=== PATIENT | male | born 1990 | race Caucasian/White ===

== ENCOUNTER → 2023-09-04 01:31 | Outpatient (CLI) | payer OTHER, SELFPAY ==
--- NOTE | 2023-09-04 | DI.MRI_ITS ---
Exam(s) MR LUMBAR SPINE WO EXAM: MR LUMBAR SPINE WO CLINICAL HISTORY: INTVRT DISC STENOSIS OF NEURAL CANAL,M99.53,BACK PAIN. TECHNIQUE: Multiplanar multisequence MRI of the Lumbar spine was performed. COMPARISON: No exams were available for comparison FINDINGS: Conus medullaris is at normal level. There is no evidence of conus mass nor subjacent clumping of in trathecal nerve roots to suggest arachnoiditis. The distal thecal sac appears unremarkable.There is no evidence of Tarlov intrasacral cysts nor other significant findings within the sacral canal Bones:There are no fractures nor ominous osseous lesions in the lumbar vertebral bodies and visualize d sacrum. With respect to the individual levels... T12-L1: Unremarkable L1-2: Normal disc height and signal. No disc herniation nor central canal stenosis.No foraminal steno sis L2-3: Normal disc height. Slight decreased disc hydration signal. Small nonacute Schmorl's node inv agination in the superior endplate of L3 noted. No significant disc herniation nor central canal cl[place] nosis.No foraminal stenosis.No facet arthropathy. L3-4: Normal disc height. No disc herniation or central canal stenosis.No foraminal stenosis.No face t arthropathy. L4-5: Normal disc height and signal. No disc herniation or central canal stenosis. No significant f acet arthropathy. No foraminal stenosis. L5-S1: Normal disc height and signal. No disc herniation nor central canal stenosis. No facet arthr opathy. No foraminal stenosis. Soft tissues: paraspinal soft tissues appear unremarkable. IMPRESSION: 1. Mild findings at L2-3 level as described above. 2. No significant disc herniation. No disc height loss. 3. No evidence of central spinal canal stenosis nor foraminal stenosis. 4. No significant facet arthropathy. DATA REPOSITORY:
== END ==
PROVIDERS: Visit Provider Nurse Practitioner Adult Health
DX: M51.26 Other intervertebral disc displacement, lumbar region (principal)
CPT/HCPCS: 72148

== ENCOUNTER 2024-05-29 13:07 | Emergency (ER) | payer OTHER, SELFPAY ==
[2024-05-29 13:03] VITALS: BP 160/75; PULSE 116; RESP 18; TEMP 39.5; O2SAT 100
--- NOTE | 2024-05-29 13:15 | W.ED.GENAD ---
Discharge Plan Disposition Patient Disposition: [facility] Condition: Stable Discharge Details Clinical Impression: Strep pharyngitis Primary Care Provider: Unknown,Unknown ED Provider: Terell Mijares Home Meds and New Rx's Prescriptions: New prednisone 20 mg tablet 40 mg PO DAILY 4 Days Qty: 8 0RF Rx Instructions: start 05/30/24 Discharge Instructions Instructions: Prednisone, Strep Throat ED Additional Instructions: You were seen in the emergency department for your strep pharyngitis, he had a high fever but had not had any Tylenol or ibuprofen. You are complaining of difficulty breathing but you are 100% oxygen on room air. Please use therapeutic dosing of Tylenol (acetamenophen) & Advil (ibuprofen) in an alternating fashion as follows: Take 1000mg of Tylenol every 6 hours without missing doses- that is 4 times per day. Retirement in between the Tylenol dosings, take 400-600mg of Advil also on a 6 hour schedule, that is also 4 times per day. The daily maximum dosing of Tylenol is 4000mg, and the daily maximum dosing of Advil is 2400mg. This is safe to do for weeks. Please note that some common cold medications & prescription pain medications may contain acetamenophen and you need to read OTC drug labels and factor that in to maximum daily dosings. Use the prescribed prednisone for the next 4 days beginning tomorrow as we gave an IV dose here today. Continue amoxicillin, return to the emergency department for severe vocal changes, severe increase in neck pain and swelling, excessive drooling and inability to open or close the jaw. HPI General Date/Time Provider Initiated Documentation: 05/29/24 13:11. HPI Narrative: 33 year-old male presents to ED today by EMS/DOC with a chief complaint of known strep infection, states having difficulty breathing, and high fever with onset noted today. Quality described as sore throat, no radiation to trismus, vocal changes, cough, ear pain, inability to tolerate PO intake. Severity is described as moderate. Palliating factors include nothing specific attempted- had 1 dose of amoxicillin today, no Tylenol/motrin. Provoking factors include nothing specific. Patient not anticoagulated. Related Data Home Medications ?Medication ?Instructions ?Recorded ?Confirmed prednisone 20 mg tablet 40 mg (2 x 20 mg) PO DAILY 4 days 05/29/24 #8 tabs Previous Rx's ?Medication ?Instructions ?Recorded prednisone 20 mg tablet 40 mg (2 x 20 mg) PO DAILY 4 days 05/29/24 #8 tabs General Stated Complaint: Sorethroat CHANTEL: 3 Review of Systems All systems reviewed & are unremarkable except as noted in HPI and below Exam Narrative Exam Narrative: GENERAL APPEARANCE: Well-nourished, non-toxic, awake and alert, atraumatic, no acute distress. SKIN: Warm, pink, dry, intact, without rashes/lesions/ulcerations. HEAD: Normocephalic, atraumatic, normal hair distribution for gender/age. EYES: Normal conjunctiva, no exudates on lids/lashes. ENT: Nares patent, no circumoral cyanosis, no facial swelling, uvula midline, bilateral tonsillar swelling, no tonsillar lymphadenopathy, managing secretions well, no trismus NECK: Supple, trachea midline, painless cervical ROM. LUNGS/CHEST: Lungs CTA bilaterally-no rhonchi/rales/wheezes diffusely, non-labored respirations, normal A/P diameter, symmetrical expansion, no chest wall deformity HEART (CV/PV): Regular rate and rhythm without murmur, no peripheral edema, no JVD. ABDOMEN: Soft, non-distended, no guarding. MSK: Normal ROM, no swelling/deformity to bilateral UEs or LEs, moving all extremities without weakness, no cyanosis, spine midline without tenderness, normal curvature. NEURO: Mental Status AAOx4 - alert to person, place, time, events No facial droop, no forehead involvement. Motor: No focal weakness - strength 5/5 in bilateral UEs and LEs, proximal and distal, symmetric. Sensory: sensation intact to light touch globally. Gait normal: patient ambulated without ataxia into ED room. PSYCH: euthymic, cooperative, pleasant, appropriate speech Course Vital Signs Vital signs: Vital Signs Temperature 39.5 C H 05/29/24 13:03 Pulse 116 H 05/29/24 13:03 Respiratory Rate 18 05/29/24 13:03 Blood Pressure 160/75 H 05/29/24 13:03 Pulse Oximetry 100 05/29/24 13:03 Temperature 39.5 C H 05/29/24 13:03 Temperature Source Oral 05/29/24 13:03 Pulse 116 H 05/29/24 13:03 Respiratory Rate 18 05/29/24 13:03 Blood Pressure 160/75 H 05/29/24 13:03 Pulse Oximetry 100 05/29/24 13:03 Oxygen Delivery Method Room Air 05/29/24 13:03 Oxygen Flow Rate 0 05/29/24 13:03 Medical Decision Making This dictation utilizes [id number] dictation software and may contain unedited grammatical errors. 33 year-old male presents to ED today by EMS/DOC with a chief complaint of known strep infection, states having difficulty breathing, and high fever with onset noted today. Quality described as sore throat, no radiation to trismus, vocal changes, cough, ear pain, inability to tolerate PO intake. Severity is described as moderate. Palliating factors include nothing specific attempted- had 1 dose of amoxicillin today, no Tylenol/motrin. Provoking factors include nothing specific. Patients' medical history: Noncontributory. Family and social history: Noncontributory, incarcerated. Pertinent exam findings / vital signs include bilateral tonsillar swelling without overt exudate, no trismus, no vocal changes, managing secretions well-patient brought in 100% SpO2 on room air Differential / pathologies of concern include strep pharyngitis, not hypoxic respiratory failure. Diagnostic studies of: -None. Interventions of: -Given 1 g Tylenol, 15 mg ketorolac and 125 mg methylprednisolone IV. Continuing outpatient ED Course/Assessment/Plan: 33-year-old male presents from [facility] facility with confirmed strep pharyngitis, has not had any Tylenol or ibuprofen and has a high fever, complaining of difficulty breathing but is 100% SpO2 on room air. He feels much better after IV Tylenol and Toradol as well as some steroids. Continue these outpatient. Strict return criteria for severe vocal changes with trismus, fevers not responding to pyretics with severe neck swelling and pain. Findings not consistent with deep space infection, respiratory distress. Disposition of strep pharyngitis. Patient verbalized understanding of the plan and return to ED criteria and engaged in shared decision making. Medical Records Medical records reviewed: Yes I reviewed the patient's medical records. Quality:SDOH Health Related Social Needs: No Data to Display PFSH All Active Problems (Updated 05/29/24 @ 14:51 by BUTCH Wheeler) Strep pharyngitis (Acute) Social History Smoking risk assessment performed?: No
[2024-05-29] MEDS: Ketorolac 15 MG/ML VIAL IVP (14:00)
[2024-05-29] MEDS: methylPREDNISolone SUCC 125 MG VIAL IVP (14:00)
[2024-05-29] MEDS: ACETAMINOPHEN 1,000 MG/100 ML BAG 400 MG IVPB (14:00)
== END 2024-05-29 15:32 ==
PROVIDERS: Emergency Provider Physician Assistant
DX: J02.0 Streptococcal pharyngitis (principal)
CPT/HCPCS: 96374; 96375; 99284; 99283; J0131; J1885; J2919